=== PATIENT | female | born 1975 | race Caucasian/White ===

== ENCOUNTER 2016-11-15 08:06 | Emergency (ER) | payer BC | END 2016-11-15 12:05 | disposition home or self-care (01) | LOC: ER 08:06 | DX: J06.9 Acute upper respiratory infection, unspecified (principal); J32.9 Chronic sinusitis, unspecified; R11.0 Nausea; R51 Headache; E07.9 Disorder of thyroid, unspecified; Z90.711 Acquired absence of uterus with remaining cervical stump; Z88.2 Allergy status to sulfonamides | CPT/HCPCS: 36415; 87651; 96361; 96374; 96375; J1885 ==

== ENCOUNTER 2016-11-21 18:48 | Emergency (ER) | payer BC | END 2016-11-21 23:30 | disposition home or self-care (01) | LOC: ER 18:48 | DX: R07.89 Other chest pain (principal); E78.5 Hyperlipidemia, unspecified; Z88.2 Allergy status to sulfonamides; Z79.899 Other long term (current) drug therapy; Z90.711 Acquired absence of uterus with remaining cervical stump | CPT/HCPCS: 36415; 96361; 96374; 96375; Q9967 ==